=== PATIENT | male | born 1940 | race Caucasian/White ===

== ENCOUNTER 2016-07-11 12:21 | Observation (INO) | payer OTHER, MEDICARE ==
--- NOTE | ~2016-07-11 | HP ---
History And Physical [place] [id number] [facility] [place]. [address] NAME: TYRESE BRADFORD : 40 STATUS : ADM Hugo PAT#: [id number] AGE: 76 ADM/REG DATE : 07/11/16 MR#: [id number] REPORT SERV DATE: 07/11/16 DICTATED BY: MIMI CLEMENT DATE: 07/11/16 REPORT STATUS : Draft TRANSCRIBED BY: MODL DATE: 07/11/16 DATE OF ADMISSION: 07/11/2016 PRIMARY CARE PROVIDER: [facility] in [place]; patient cannot recall MDs name. CHIEF COMPLAINT: Chest pain, dyspnea, fatigue approximately one week. HISTORY OF PRESENT ILLNESS: This is a 76-year-old white male with a history of diabetes mellitus type 2, hypertension, hyperlipidemia, and several TIAs, on Plavix and aspirin. For approximately one week, he has had escalating dyspnea and fatigues easily. He reports the dyspnea is worse with exertion. He denies any orthopnea. He has had ankle edema, but denies any at this time. He reports sometimes he feels "a funny feeling in his chest and has had these symptoms for several weeks if not months." He denies any syncope or presyncope. He went to the [facility] today as a sick visit as he developed left-sided chest pain. They checked an EKG, which was sinus rhythm, rate 62. The says, however, she was told his heart was doing funny things and that his heart rate was high. He was referred to the emergency room for further evaluation. The EKG in the ER showed atrial flutter in an atypical fashion with heart rate 143, but he was not given any medications in the emergency room for the atrial flutter other than aspirin. Upon arrival to the [facility], it appears he had an atypical atrial flutter rate 50s, but the EKG was of poor quality. I then had him placed on telemetry where it appeared the first beat was a PAC or atrial flutter and then quickly changed to a clear sinus bradycardia rate 50s. This was without any interventions. PAST MEDICAL HISTORY: 1. Hypertension. 2. Hyperlipidemia. 3. Several TIAs, last several years ago, on aspirin and Plavix. 4. History of chest pain with last nuclear stress test performed in the [facility] , 01/24/2015. This was considered to be an overall low-risk vasodilators stress test with an ejection fraction of 54% and no ischemia on imaging. He has also undergone echocardiogram, last 10/26/2012 with an ejection fraction of 55% to 60% with trace AR and MR and normal left atrial size. He also underwent a Holter monitor on 04/20/2015 that was normal. 5. GERD. 6. BPH. 7. Erectile dysfunction. 8. Diabetes mellitus type 2. 9. Chronic fatigue, the patient reports has been worse recently. 10.Anxiety. 11.Hard of hearing bilaterally with hearing aids in place. PAST SURGICAL HISTORY: 1. Inguinal hernia repair. 2. Skin cancer status post treatment. 3. Eyelid surgery. 4. Thumb surgery. History And Physical [address] [address] NAME: TYRESE BRADFORD : 40 STATUS : ADM Hugo PAT#: [id number] AGE: 76 ADM/REG DATE : 07/11/16 MR#: [id number] REPORT SERV DATE: 07/11/16 DICTATED BY: MIMI CLEMENT DATE: 07/11/16 REPORT STATUS : Draft TRANSCRIBED BY: FELECIA DATE: 07/11/16 SOCIAL HISTORY: . Retired. Former tobacco use. Quit smoking in 1996. He denies any alcohol. 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 FAMILY HISTORY: Positive for CAD and stroke in parents. REVIEW OF SYSTEMS: The patient denied ever being diagnosed with atrial fibrillation, atrial flutter, or any atrial arrhythmia as above per HPI, all other systems reviewed and negative. ALLERGIES: NO KNOWN DRUG ALLERGIES. HOME MEDICATIONS: List reviewed and is in chart. CARDIAC RELATED MEDICATIONS: 1. Include aspirin 81 mg p.o. daily. 2. Plavix 75 mg p.o. every morning. 3. Simvastatin 80 mg p.o. at bedtime. 4. Flomax 0.4 mg p.o. at bedtime. 5. Viagra 0.25 mg p.o. p.r.n. sexual activity. PHYSICAL EXAMINATION: VITAL SIGNS: Oxygen saturation 97% on 1 L nasal cannula. Weight and height unavailable, temperature 97.4, pulse 57, respiratory rate 28, currently 16, blood pressure 143/64 in the emergency room. Await blood pressure here on the floor. GENERAL: Well developed, well nourished. In no apparent distress. HEENT: Head normocephalic. No xanthelasma. Sclera clear, anicteric. Moist mucous membranes without pallor. No lymphadenopathy. No deficits noted. NECK: Trachea midline. Supple. No thyromegaly, JVD, or bruits. RESPIRATORY: Unlabored respirations. Breath sounds clear bilaterally to posterior auscultation. No wheezes, rhonchi or crackles. CARDIOVASCULAR: Irregularly irregular and slow at the time of my examination. No murmur, rub, or gallop. PMI nondisplaced. ABDOMEN: Soft, nontender, and nondistended. Active bowel sounds auscultated x4 quadrants. No organomegaly and no masses. No aortic bruit. EXTREMITIES: DP/PT and radial pulses 2+ bilaterally. No clubbing, cyanosis, or edema. SKIN: Warm, dry, intact. No rash. Normal turgor. MUSCULOSKELETAL: Moves all extremities in bed without difficulty. NEURO/PSYCH: Alert and oriented x3 with no acute distress. Affect appropriate to current situation. LABORATORY DATA: BMP: Sodium 140, potassium 4.4. Creatinine 1.06. Glucose elevated at 160. Magnesium 2. CBC: White blood cell count 9, hemoglobin 13.4, hematocrit 38.4, and platelets 167. Troponin less than 0.02. STUDIES: History And Physical [address] [address] NAME: TYRESE BRADFORD : 40 STATUS : ADM Hugo PAT#: [id number] AGE: 76 ADM/REG DATE : 07/11/16 MR#: [id number] REPORT SERV DATE: 07/11/16 DICTATED BY: MIMI CLEMENT DATE: 07/11/16 REPORT STATUS : Draft TRANSCRIBED BY: MODL DATE: 07/11/16 1. Chest x-ray, no acute processes. 2. EKG, personally interpreted x3. Initial EKG performed this morning at the NH revealed a sinus rhythm. This was done at 0931 hours. Heart rate was 62. No acute ischemic changes. The second EKG performed in the emergency department at 1127 hours revealed an atypical atrial flutter, rate 143 with left axis deviation, nonspecific IVCD. Third EKG performed at 1416 hours, it is of poor quality, but is possibly a slow atrial flutter, rate 54 versus sinus bradycardia. 3. Last Holter report, 04/20/2015 was normal. Last echo as previously stated, 10/26/2012 with EF 55-60% and trace AR and MR only. Last stress test 01/24/2015, low-risk vasodilators stress test. No ischemia with an EF of 54%. 4. Telemetry, currently sinus bradycardia. Note, the patient without on telemetry at the time of my exam as the patient was just arrived from the ER in [facility]. ASSESSMENT AND PLAN: 1. Paroxysmal atrial flutter (atypical), currently appears to have just converted from atrial flutter to sinus bradycardia. He is not on any atrioventricular alexia blocking agents. We will check an electrocardiogram to confirm rhythm change. If second troponin is negative this evening, then we would initiate Eliquis for stroke prevention. This is due to a CHADS2-VASC score of 6, which is 6 for hypertension, age, diabetes mellitus, and history of transient ischemic attack. I will ask the [facility] organizational development specialist for the atrial fibrillation observation unit to see this patient. If the patient converts back to atrial flutter, then we would arrange a transesophageal echocardiographic cardioversion tomorrow at 3 p.m. We will also check an echocardiogram and routine atrial fibrillation observation unit orders including thyroid stimulating hormone and free T4. 2. Chest pain. This is in a patient with cardiac risk factors of hypertension, hyperlipidemia, and diabetes. I will check serial troponins. First initial troponin was less than 0.02. Again, I will also check an echocardiogram. Please note, he had a low-risk vasodilators stress test on 01/24/2015 with no ischemia. 3. Hypertension. We will follow and continue home medications. 4. Hyperlipidemia. Continue home statin. 5. Fatigue. Check thyroid stimulating hormone and free T4. 6. Diabetes mellitus type 2. We will place him on sliding scale insulin while here. Further recommendations pending evaluation and from [facility] organizational development specialist for atrial fibrillation observation unit, Dr. Siu. ERNESTINA/FELECIA Mimi Clement NP / [id number] CC: History And Physical [address] [place] [address] NAME: TYRESE BRADFORD : 40 STATUS : ADM Hugo PAT#: [id number] AGE: 76 ADM/REG DATE : 07/11/16 MR#: [id number] REPORT SERV DATE: 07/11/16 DICTATED BY: MIMI CLEMENT DATE: 07/11/16 REPORT STATUS : Draft TRANSCRIBED BY: MODL DATE: 07/11/16 Mimi Clement NP
[2016-07-11 12:21] LABS: PROTIME (NOT ORD) 13.5 SEC (12.0-14.5)
[~2016-07-11 12:21] MED LIST: ASAB PO; FLOMAX4 PO; GLUCOPHAGE1000 MG PO; GLUCPH PO; NAP500 PO; PAX10 PO; PLAVIX PO; PRILO PO; PRILOSEC OTC20 MG PO; PRILOSEC40 MG PO; REFRESH OPH; SUPER B COMP OR; SUPER B COMP PO; VIAGRA PO; VIAGRA100 MG PO; ZOCOR40 PO; ZOCOR80 MG PO
[2016-07-11 12:27] LABS: BASOPHILS 0.1 %; BASOPHILS ABSOLUTE 0.01 10/3/uL (0.0-0.16); EOSINOPHILS ABSOLUTE 0.09 10/3/uL (0.0-0.53); ER CBC TAT 0 Hrs 18 Mins; HEMATOCRIT 38.4 % (40.0-51.0); HEMOGLOBIN 13.4 g/dL (13.6-17.8); IMMATURE GRANULOCYTES 0.2 %; IMMATURE GRANULOCYTES ABSOLUTE 0.02 10/3/uL (0.0-0.11); LYMPHOCYTES 46.2 %; LYMPHOCYTES ABSOLUTE 4.16 10/3/uL (0.67-4.30); MANUAL DIFF NO %; MEAN CORPUS HGB CONC 34.9 g/dL (32.0-36.0); MEAN CORPUSCULAR HEMOGLOB 31.4 pg (26.0-34.0); MEAN CORPUSCULAR VOLUME 89.9 fL (80-100); MEAN PLATELET VOLUME 8.2 fL (9.2-13.0); MONOCYTES ABSOLUTE 0.45 10/3/uL (0.21-1.20); NEUTROPHILS 47.5 %; NEUTROPHILS ABSOLUTE 4.28 10/3/uL (2.02-8.40); PLATELET COUNT 167 10/3/uL (150-400); RBC DISTRIBUTION WIDTH 12.9 % (12.0-16.0); RED CELL COUNT 4.27 10/6/uL (4.7-6.1)
[2016-07-11 12:34] LABS: BUN (BLOOD UREA NITROGEN) 14 MG/DL (6-23); CALCIUM, SERUM 8.5 MG/DL (8.5-10.4); CHEST PAIN PROFILE TAT 0 Hrs 25 Mins; CHLORIDE, SERUM 105 MMOL/L (96-112); CO2 (CARBON DIOXIDE) 27 MMOL/L (24-34); CREATININE 1.06 MG/DL (0.70-1.30); GFR AFRICAN AMERICAN 79 ML/MIN (>=60); GFR NON AFRICAN AMERICAN 68 ML/MIN (>=60); GLUCOSE, SERUM 160 MG/DL (60-99); POTASSIUM, SERUM 4.4 MMOL/L (3.5-5.3); SODIUM, SERUM 140 MMOL/L (135-148); TROPONIN I <0.02 NG/ML (<0.05)
[2016-07-11 18:17] LABS: ALBUMIN 3.5 G/DL (3.5-5.0); ALKALINE PHOSPHATASE 65 U/L (45-117); DIRECT BILIRUBIN 0.1 MG/DL (0.0-0.4); FREE T4 0.94 NG/DL (0.76-1.46); INDIRECT BILIRUBIN(NOT ORDER) 0.5 MG/DL (0.1-0.9); SGOT(AST) 12 U/L (5-40); SGPT(ALT) 20 U/L (5-65); TOTAL BILIRUBIN 0.6 MG/DL (0-1.2); TOTAL PROTEIN 6.5 G/DL (6.0-8.5)
[2016-07-13 04:40] LABS: BASOPHILS 0.1 %; BASOPHILS ABSOLUTE 0.01 10/3/uL (0.0-0.16); EOSINOPHILS 1.6 %; EOSINOPHILS ABSOLUTE 0.14 10/3/uL (0.0-0.53); HEMATOCRIT 36.7 % (40.0-51.0); HEMOGLOBIN 12.6 g/dL (13.6-17.8); IMMATURE GRANULOCYTES 0.1 %; IMMATURE GRANULOCYTES ABSOLUTE 0.01 10/3/uL (0.0-0.11); LYMPHOCYTES 48.8 %; LYMPHOCYTES ABSOLUTE 4.15 10/3/uL (0.67-4.30); MEAN CORPUS HGB CONC 34.3 g/dL (32.0-36.0); MEAN CORPUSCULAR HEMOGLOB 31.3 pg (26.0-34.0); MEAN CORPUSCULAR VOLUME 91.1 fL (80-100); MEAN PLATELET VOLUME 8.3 fL (9.2-13.0); MONOCYTES 6.1 %; MONOCYTES ABSOLUTE 0.52 10/3/uL (0.21-1.20); NEUTROPHILS 43.3 %; NEUTROPHILS ABSOLUTE 3.67 10/3/uL (2.02-8.40); PLATELET COUNT 142 10/3/uL (150-400); RBC DISTRIBUTION WIDTH 13.1 % (12.0-16.0); RED CELL COUNT 4.03 10/6/uL (4.7-6.1); WHITE BLOOD CELLS 8.5 10/3/uL (4.5-10.5)
[2016-07-13 04:41] LABS: MANUAL DIFF NO %
[2016-07-13 04:55] LABS: CALCIUM, SERUM 8.1 MG/DL (8.5-10.4); CHLORIDE, SERUM 108 MMOL/L (96-112); CO2 (CARBON DIOXIDE) 25 MMOL/L (24-34); GFR AFRICAN AMERICAN 75 ML/MIN (>=60); GFR NON AFRICAN AMERICAN 65 ML/MIN (>=60); SODIUM, SERUM 143 MMOL/L (135-148)
[2016-07-13 05:01] LABS: BUN (BLOOD UREA NITROGEN) 19 MG/DL (6-23); GLUCOSE, SERUM 122 MG/DL (60-99)
[2016-07-13] MEDS ORDERED: PRIN5 PO (09:38)
[2016-12-08] MEDS ORDERED: TYLENOL PO (15:03)
[2016-12-08] MEDS ORDERED: NITROSTAT0.4 MG SL (15:04)
[2016-12-08] MEDS ORDERED: PRIN5 PO (15:04)
[2016-12-08] MEDS ORDERED: GLUCPH PO (15:05)
[2016-12-08] MEDS ORDERED: PRILO PO (15:05)
[2016-12-08] MEDS ORDERED: ZOCOR80 MG PO (15:06)
[2016-12-08] MEDS ORDERED: VITAMIN B PO (15:06)
[2016-12-08] MEDS ORDERED: FLOMAX4 PO (15:06)
[2016-12-08] MEDS ORDERED: PAX10 PO (15:06)
[2016-12-08] MEDS ORDERED: LOVENOX1C SC (15:08)
[2016-12-08] MEDS ORDERED: COUMADIN7.5 MG PO (15:09)
[2016-12-08] MEDS ORDERED: COUMADIN10 MG PO (15:10)
[2016-12-13] MEDS ORDERED: LEVAQUIN750 MG PO (12:52)
[2016-12-13] MEDS ORDERED: ACET500CAP PO (12:59)
[2016-12-13] MEDS ORDERED: C5 PO (13:07)
== END 2016-07-13 10:04 | disposition home or self-care (01) ==
LOC: ER 12:21 → CDU1 13:33 → CDU2 13:40
PROVIDERS: Emergency Medicine; Nurse Practitioner Family
DX: I20.0 Unstable angina (principal); I10 Essential (primary) hypertension; E78.5 Hyperlipidemia, unspecified; I48.0 Paroxysmal atrial fibrillation; E78.00 Pure hypercholesterolemia, unspecified; K21.9 Gastro-esophageal reflux disease without esophagitis; N40.0 Benign prostatic hyperplasia without lower urinary tract symptoms; E11.9 Type 2 diabetes mellitus without complications; F41.9 Anxiety disorder, unspecified; Z98.890 Other specified postprocedural states; M19.90 Unspecified osteoarthritis, unspecified site; Z87.891 Personal history of nicotine dependence; Z82.49 Family history of ischemic heart disease and other diseases of the circulatory system; Z86.73 Personal history of transient ischemic attack (TIA), and cerebral infarction without residual deficits
CPT/HCPCS: 71010; 71275; 80048; 80076; 82962; 83735; 83880; 84439; 84443; 84484; 85025; 85610; 85730; 93005; 93306; 93458; 93880; 99152; 99285; A9270-GY; C1769; C1894; G0378; J2250; J3010; Q9967